=== PATIENT | male | born 1995 | race Caucasian/White ===

== ENCOUNTER 2017-12-31 12:30 | Emergency (ER) | payer BC, MEDICAID, OTHER ==
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
[2017-12-31 13:30] LABS: CHLORIDE,CL 111 mmol/L (98-107); SODIUM,NA 147 mmol/L (136-145)
[2017-12-31] MEDS ORDERED: Take Home: Amoxicillin/Clavulanate K 875-125 MG Tab, 2 Tab Pack PO ONE (14:36)
[2017-12-31] MEDS ORDERED: Take Home: traMADol 50 MG, 4 Tab Pack PO ONE (14:42)
== END 2017-12-31 14:52 | disposition home or self-care (01) ==
LOC: VM.ED 12:30
DX: S02.31XA Fracture of orbital floor, right side, initial encounter for closed fracture (principal); S02.2XXA Fracture of nasal bones, initial encounter for closed fracture; Y04.2XXA Assault by strike against or bumped into by another person, initial encounter
CPT/HCPCS: 36415; 70450; 80053; 85025; 99284; A9270; G0480